=== PATIENT | male | born 1950 | race Caucasian/White ===

== ENCOUNTER 2021-02-10 10:20 | Outpatient (REF) | payer MEDICARE, SELFPAY ==
--- NOTE | 2021-02-10 12:54 | MHC.AU.P13 ---
Adult Audiological Evaluation Date of Visit: 02/10/21 Reason for Appointment: Audiological evaluation to monitor the status of Mr. Landaverde's hearing loss. He has a know bilateral, asymmetrical sensorineural hearing loss, right ear worse than left. He uses hearing aids binaurally, but states that he has not been using them much lately. He feels his hearing is gradually worsening. He denies any changes to his medical history. Previous Hearing Test Results: [facility] [place]- Normal sloping to a moderately severe SNHL in the left ear, Mild to moderately severe SNHL in the right ear. Medical History: Medical History: BPPV Hearing Instrument History- Right Ear: Applications Programmer Analyst: Colibria Model: Airgain0-M WellAppsE Serial Number: [id number] Battery Size: 312 Repair Warranty: 10/24/2018 Loss and Damage Warranty: 10/24/2018 Dispensed By: [facility] Date of Fittin07/29/2016 Hearing Instrument History- Left Ear: Applications Programmer Analyst: Colibria Model: Airgain0-M WellAppsE Serial Number: [id number] Battery Size: 312 Warranty: 10/24/2018 Loss and Damage Warranty: 10/24/2018 Dispensed By: [facility] Date of Fittin07/29/2016 Otoscopy: Right Ear: Unremarkable Left Ear: Completely occluded with cerumen Tympanometry: Tympanometry performed due to: To determine if cerumen blockage is fully occluding canal(s) Right Ear: Normal Middle Ear System (Type A) Left Ear: Normal Middle Ear System (Type A) Hearing Evaluation: Transducer(s) Used: Circumaural Headphones, Bone Conduction Method: Conventional Audiometry Stimuli Used: Pure Tones Right Ear: Description of Hearing: Mild sloping to severe sensorineural hearing loss from 250-8000 Hz. Left Ear: Description of Hearing: Normal hearing from 250-1000 Hz, sloping to a mild to severe sensorineural hearing loss from 6803-6819 Hz. Speech Recognition Threshold (SRT): Method Used: Recorded Lists Stimuli Used: Spondee Words Right Ear: 40 dBHL Left Ear: 20 dBHL Word Discrimination: Method: Recorded Lists Word Lists Used: NU-6 Right Ear: 88% at 80 dBHL Left Ear: 100% at 60 dBHL Comparison: Compared to the most recent evaluation: Hearing is stable. Recommendations: Audiological re-evaluation in one year. Hearing aid maintenance performed today. Recommend wax removal from the left ear, either with the use of wax removal drops or by a physician. Diagnosis: Primary Diagnosis: H90.3 Bilateral Sensorineural Hearing Loss Secondary Diagnosis: H61.22 Impacted Cerumen, Left Ear Services Performed: Comprehensive Audiological Evaluation (CPT 99341) Tympanometry (CPT 89920) Signature: Provider: Tiffany Agosto, CCC-A
== END 2021-02-10 10:21 | disposition home or self-care (01) ==
LOC: HO.SH 10:20
PROVIDERS: Visit Provider Internal Medicine
DX: H90.3 Sensorineural hearing loss, bilateral (principal); H61.22 Impacted cerumen, left ear
CPT/HCPCS: 92557; 92567

== ENCOUNTER 2021-03-04 07:51 | Outpatient (REF) | payer MEDICARE, OTHER, SELFPAY ==
[2021-03-04 09:26] LABS: Prostate Specific Antigen 9.32 ng/mL (<0.05-4.0)
== END 2021-03-04 07:52 | disposition home or self-care (01) ==
LOC: HO.LAB 07:51
PROVIDERS: PCP Internal Medicine; Visit Provider Urology
DX: Z12.5 Encounter for screening for malignant neoplasm of prostate (principal); N40.1 Benign prostatic hyperplasia with lower urinary tract symptoms
CPT/HCPCS: 36415; 84153

== ENCOUNTER 2022-04-28 12:51 | Outpatient (REF) | payer MEDICARE, OTHER, SELFPAY ==
--- NOTE | 2022-04-28 16:12 | MHC.AU.AHA ---
Adult Audiological Evaluation Date of Visit: 04/28/22 Reason for Appointment: Audiological evaluation to determine if there has been a change in hearing. Mr. Landaverde has a known asymmetrical sensorineural hearing loss, worse in his right ear. He has previously used hearing aids binaurally, though he notes he has lost his right hearing aid. He feels that the hearing in his right ear is getting worse. Previous Hearing Test Results: [facility] [place], 02/10/2021- Mild to severe sensorineural hearing loss in the right ear, normal hearing through 1000 Hz sloping to a mild to severe sensorineural hearing loss through 8000 Hz. Cerumen occlusion in the left ear. Medical History: Medical History: Diabetes Medical History: BPPV, high cholesterol Allergies: NKA Medication List: Plavix, medications for diabetes and cholesterol, unsure of the names and didn't have list with him. Hearing Instrument History- Right Ear- LOST Steam And Gas Turbines Assembler: [employer] Model: XenoOne0-M Allocadia Serial Number: [id number] Battery Size: 312 Repair Warranty: 10/24/2018 Loss and Damage Warranty: 10/24/2018 Dispensed By: [facility] Date of Fittin07/29/2016 Hearing Instrument History- Left Ear: Steam And Gas Turbines Assembler: [employer] Model: XenoOne0-M Rover AppsE Serial Number: [id number] Battery Size: 312 Warranty: 10/24/2018 Loss and Damage Warranty: 10/24/2018 Dispensed By: [facility] Date of Fittin07/29/2016 Otoscopy: Right Ear: Completely occluded with cerumen Left Ear: Completely occluded with cerumen Tympanometry: Right Ear: Could Not Obtain Seal Left Ear: Could Not Obtain Seal Hearing Evaluation: Transducer(s) Used: Circumaural Headphones, Bone Conduction Method: Conventional Audiometry Stimuli Used: Pure Tones Right Ear: Description of Hearing: Mild sloping to severe sensorineural hearing loss from 250-8000 Hz. Left Ear: Description of Hearing: Normal hearing from 250-750 Hz, sloping to a mild to severe sensorineural hearing loss from 7197-9908 Hz. Speech Recognition Threshold (SRT): Method Used: Monitored Live Voice Stimuli Used: Spondee Words Right Ear: 45 dBHL Left Ear: 20 dBHL Word Discrimination: Method: Recorded Lists Word Lists Used: NU-6 Right Ear: 84% at 85 dBHL Left Ear: 76% at 60 dBHL Comparison: Compared to the most recent evaluation: Hearing is stable. Recommendations: Audiological re-evaluation in one year. Follow-up with physician for cerumen removal and recommend use of cerumen removal/softening drops (i.e. EarWax MD, Debrtherese). Patient would like to have his left hearing aid reprogrammed from his right ear since he has lost the right aid. However, he forgot the left aid today and may have misplaced it. He will look for the left aid and return to have to reprogrammed at his convenience. Diagnosis: Primary Diagnosis: H90.3 Bilateral Sensorineural Hearing Loss Secondary Diagnosis: H61.23 Impacted Cerumen, Bilateral Services Performed: Comprehensive Audiological Evaluation (CPT 91078) Signature: Provider: Tiffany Agosto, CCC-A
== END 2022-04-28 12:52 | disposition home or self-care (01) ==
LOC: HO.SH 12:51
PROVIDERS: Visit Provider Internal Medicine
DX: Z01.118 Encounter for examination of ears and hearing with other abnormal findings (principal); H90.3 Sensorineural hearing loss, bilateral; H61.23 Impacted cerumen, bilateral
CPT/HCPCS: 92557

== ENCOUNTER 2022-05-01 13:31 | Outpatient (REF) | payer SELFPAY | END 2022-05-01 13:32 | disposition home or self-care (01) | LOC: HO.HAP 13:31 | PROVIDERS: Visit Provider Internal Medicine | DX: Z46.1 Encounter for fitting and adjustment of hearing aid (principal); H90.3 Sensorineural hearing loss, bilateral | CPT/HCPCS: 99499 ==

== ENCOUNTER 2022-08-19 07:53 | Outpatient (REF) | payer MEDICARE, OTHER, SELFPAY ==
[2022-08-19 08:05] LABS: MANUAL DIFF FLAG NO
[2022-08-19 09:08] LABS: Basophils Absolute Auto 0.1 X10*3/uL (0.0-0.2); Eosinophils Absolute Auto 0.5 X10*3/uL (0.0-0.4); Eosinophils Percent Auto 6.7 % (0-4); Hematocrit 40.2 % (42.0-52.0); Hemoglobin 13.1 g/dl (14.0-18.0); Imm Gran Abs Auto 0.03 X10*3/uL (0.00-0.03); Imm Gran Pct Auto 0.4 % (0.0-0.4); Lymphocytes Absolute Auto 2.5 X10*3/uL (1.2-4.9); Lymphocytes Percent Auto 30.4 % (20-40); Mean Corpuscular HGB Conc 32.6 g/dl (31.0-36.0); Mean Corpuscular Hemoglobin 28.2 pg (27.0-33.0); Mean Corpuscular Volume 86.5 fL (80.0-98.0); Mean Platelet Volume 10.2 fL (9.4-12.4); Monocytes Absolute Auto 0.8 X10*3/uL (0.1-1.2); Monocytes Percent Auto 9.7 % (2-11); Neutrophils Absolute Auto 4.2 x10*3/uL (2.0-8.3); Neutrophils Percent Auto 51.8 % (45-73); Platelet Count 196 X10*3/uL (160-400); Red Blood Count 4.65 X10*6/uL (4.60-5.80); Red Cell Distribution Width 13.3 % (11.0-16.0); White Blood Count 8.1 X10*3/uL (4.8-10.8)
[2022-08-19 09:39] LABS: Anion Gap 16 (12-20); Blood Urea Nitrogen 14 mg/dL (9-16); Calcium 9.7 mg/dL (8.4-10.2); Carbon Dioxide 27 mmol/L (22-29); Chloride 102 mmol/L (96-108); Estimated Glomerular Filt Rate > 60; Glucose Random 151 mg/dL (60-115); Potassium 4.3 mmol/L (3.3-5.1); Sodium 141 mmol/L (135-145)
[2022-08-19 10:08] LABS: Prostate Specific Antigen 8.81 ng/mL (<0.05-4.0)
== END 2022-08-19 07:54 | disposition home or self-care (01) ==
LOC: HO.LAB 07:53
PROVIDERS: PCP Internal Medicine; Visit Provider Urology
DX: Z12.5 Encounter for screening for malignant neoplasm of prostate (principal); R97.20 Elevated prostate specific antigen [PSA]; N40.1 Benign prostatic hyperplasia with lower urinary tract symptoms
CPT/HCPCS: 36415; 80048; 84153; 85025

== ENCOUNTER 2023-07-09 08:07 | Outpatient (REF) | payer MEDICARE, OTHER, SELFPAY ==
[2023-07-09 09:45] LABS: Prostate Specific Antigen 7.01 ng/mL (<0.05-4.0)
== END 2023-07-09 08:08 | disposition home or self-care (01) ==
LOC: HO.LAB 08:07
PROVIDERS: PCP Internal Medicine; Visit Provider Urology
DX: C61 Malignant neoplasm of prostate (principal); Z12.5 Encounter for screening for malignant neoplasm of prostate
CPT/HCPCS: 36415; 84153

== ENCOUNTER 2024-07-04 12:35 | Outpatient (REF) | payer SELFPAY | END 2024-07-04 12:36 | disposition home or self-care (01) | LOC: HO.HAP 12:35 | PROVIDERS: Visit Provider Internal Medicine | DX: Z13.89 Encounter for screening for other disorder (principal) ==

== ENCOUNTER 2024-07-06 12:40 | Outpatient (REF) | payer SELFPAY | END 2024-07-06 12:41 | disposition home or self-care (01) | LOC: HO.HAP 12:40 | PROVIDERS: Visit Provider Internal Medicine | DX: Z46.1 Encounter for fitting and adjustment of hearing aid (principal) | CPT/HCPCS: 92593 ==

== ENCOUNTER 2024-11-23 13:41 | Outpatient (REF) | payer MEDICARE, SELFPAY ==
--- NOTE | 2024-11-23 14:31 | MHC.AU.HA3 ---
Hearing Instrument Follow-Up- Binaural Date of Visit: 11/23/24 Right Ear: Ramírez, Model, Color, Serial Number: [id number] SN: [id number] - LOST Senior Procurement Manager Repair Warranty: 10/24/2018 Senior Procurement Manager Loss and Damage Warranty: 10/24/2018 Battery Size: 312 Certification And Selection Specialist/Slim Tube: 2 slim tube Earmold/Dome/CShell/SlimTip: Small vented dome Dispensed By: [facility] Date of Fittin07/29/2016 Left Ear: Ramírez, Model, Color, Serial Number: [id number] - Reprogrammed for right ear 05/01/2022 Senior Procurement Manager Repair Warranty: 10/24/2018 Senior Procurement Manager Loss and Damage Warranty: 10/24/2018 Battery Size: 312 Certification And Selection Specialist/Slim Tube: 2 slim tube Earmold/Dome/CShell/SlimTip: Small vented dome Dispensed By: [facility] Date of Fittin07/29/2016 Follow-Up Summary: Updated hearing test - see audio. Lost original right VALLADARES in April 2022, left VALLADARES reprogrammed for right ear at that time. Declined VALLADARES services today (cleaning, tubing change, reprogramming) - Did not want to self pay. Has [employer] Medicare Preferred insurance; he is considering new HAs and will inquire about a VALLADARES benefit through his insurance. Recommendations: Hearing instrument follow-up or maintenance as needed. Please contact our clinic with any questions or concerns. Diagnosis Code(s): Primary Diagnosis: H90.3 Bilateral Sensorineural Hearing Loss Signature: Provider: Karine Cody, [facility]
== END 2024-11-23 13:42 | disposition home or self-care (01) ==
LOC: HO.SH 13:41
PROVIDERS: Visit Provider Internal Medicine
DX: Z01.118 Encounter for examination of ears and hearing with other abnormal findings (principal); H90.3 Sensorineural hearing loss, bilateral
CPT/HCPCS: 92557

== ENCOUNTER 2025-01-01 15:34 | Outpatient (REF) | payer MEDICARE, SELFPAY ==
--- OUTSIDE RECORDS SUMMARY | 2025-01-01 17:01 | XMS_ITS | Encounter Summary ---
Author Organization [employer] Address [address] [facility] [address] [place] [address] Care Team Providers Care Records Management Assistant Name Role Phone Stacey Hoffman OD Primary Care Provider [phone] Encounter Details Date Type Department Care Team (Latest Contact Info) Description 01/24/2019 Abstract [facility] CONVERSIONS Dental, Provider, DDS Social History Tobacco Use Types Packs/Day Years Used Date Smoking Tobacco: Never Assessed Sex and Gender Information Value Date Recorded Sex Assigned at Male 09/28/2022 10:17 AM EDT Legal Sex Male 10:17 AM EDT Gender Identity Male 09/28/2022 10:17 AM EDT Sexual Orientation Straight 09/28/2022 10 :17 AM EDT documented as of this encounter Plan of Treatment Not on file documented as of this encounter Visit Diagnoses Not on filedocumented in this encounter Care Teams Records Management Assistant Relationship Specialty Start Date End Date Stacey Hoffman OD [address] [place] [id number] PCP - General Optometry 09/14/17 12/05/23 documented as of this encounter
--- OUTSIDE RECORDS SUMMARY | 2025-01-01 17:01 | XMS_ITS | Clinical Summary ---
Author Organization [employer] Address [address] [facility] [address] [place] [address] Care Team Providers Care Food Service Employee Name Role Phone Unavailable Primary Care Provider Unavailabl e Allergies No known active allergies Medications atorvastatin (Lipitor) 10 MG tablet Take 10 mg by mouth in the morning. 3 Active tamsulosin (Flomax) 0.4 MG 24 hr capsule Take 0.4 mg by mouth in the morning. 3 Active sertraline (Zoloft) 50 MG tablet TAKE 1 & 1/2 TABLETS BY MOUTH EVERYDAY 3 Active traZODone (Desyrel) 50 MG tablet Take 50 mg by mouth at bedtime. 3 Active azelastine (Astelin) 0.1 % nasal spray spray 2 spray by intranasal route 2 times every day in each nostril Active Fluticasone-Ume clidin-Vilant (Trelegy Ellipta) 100-62.5-25 MCG/ACT aerosol powder Inhale 1 puff at bed time. Active amLODIPine (Norvasc) 5 MG tablet Take 5 mg by mouth in the morning. 3 Active buPROPion SR (Wellbutrin SR) 150 MG 12 hr tablet Take 150 mg by mouth 2 times daily. 3 Active D3-1000 25 MCG (1000 UT) capsule Take 25 mcg by mouth in the morning. 3 Active Social History Tobacco Use Types Packs/Day Years Used Date Smoking Tobacco: Former Cigarettes Smokeless Tobacco: Never Tobacco Cessation:Counseling Given: Not Answered Sex and Gender Information Value Date Recorded Sex Assigned at Male 09/28/2022 10:17 AM EDT Legal Sex Male 10:17 AM EDT Gender Identity Male 09/28/2022 10:17 AM EDT Sexual Orientation Straight 09/28/2022 10 :17 AM EDT Last Filed Vital Signs Vital Sign Reading Time Taken Comments Blood Pressure 70/69 08/05/2023 4:02 PM EDT Pulse 78 08/05/2023 4:02 PM EDT Temperature - - Respiratory Rate - - Oxygen Saturation - - Inhaled Oxygen Concentration - - Weight - - Height - - Body Mass Index - - Plan of Treatment Health Maintenance Due Date Last Done Comments CT Colonography 1952 Colonoscopy 1952 Colorectal Cancer Screening 1952 Depression Screening 1952 FIT DNA/Cologuard 1952 FIT 1952 FOBT 1952 Lipid Panel 1952 SDOH Screening 1952 Sigmoidoscopy 1952 Alcohol/Substance Use Screening 1964 Hepatitis B Vaccines (1 of 3 - Risk 3-dose series) 2012 RSV Patients and Patients Aged 60 years or older (1 - Risk 60-74 years 1-dose series) 2012 Dental X-Ray: Full Mouth 06/23/2020 06/22/2017 Dental X-Ray: Bitewings 02/24/2023 02/24/20 22, 07/25/2019, 07/19/2018, Additional history exists Hepatitis A Vaccines (2 of 2 - Risk 2-dose series) 10/25/2023 04/24/2023 Dental Oral Exam 02/04/2024 08/05/2023, , 01/19/2020, Additional history exists Dental Prophylaxis 02/04/2024 08/05/2023, 0 02/23/2022, 01/19/2020, Additional history exists COVID-19 Vaccine ( season) 2024 09/05/2022, 03/13/2022, 10/13/2021, Additional history exists Influenza Vaccine (#1) 2024 , 08/15/2022, 08/15/2022, Additional history exists Tobacco Screening 08/05/2024 08/05/2023 DTaP/Tdap/Td Vaccines (2 - Td or Tdap) 04/24/2033 04/24/2023 Pneumococcal Vaccine: 50+ Years Completed 08/11/2018, 08/07/2017 Zoster Vaccines Completed 12/17/2020, 12/31, 11/04/2014 HIB Vaccines Aged Out No longer eligi ble based on patient's age to complete this topic HPV Vaccines Aged Out No longer eligi ble based on patient's age to complete this topic IPV Vaccines Aged Out No longer eligi ble based on patient's age to complete this topic Meningococcal Vaccine Aged Out No jose alyson eligible based on patient's age to complete this topic RSV under 20 months Aged Out No longe r eligible based on patient's age to complete this topic Rotavirus Vaccines Aged Out No longer eligible based on patient's age to complete this topic Procedures Procedure Name Priority Date/Time Associated Diagnosis Comments PROPHYLAXIS - ADULT Routine 08/05/2023 4 :00 PM EDT Encounter for dental examination PERIODIC ORAL EVALUATION - ESTABLISHED PATIENT Routine 08/05/2023 4:00 PM EDT BITEWINGS - 4 RADIOGRAPHIC IMAGES Routine 02/23/2022 12:00 AM EDT DIAGNOSTIC - DIAGNOSTIC IMAGING - INTRAORAL - COMPREHENSIVE SERIES OF RADIOGRAPHIC IMAGES Routine 06/22/2017 12:00 AM EDT from Last 3 Months or Most Recently Relevant to Health Maintenance Insurance DENTAL - HSN PARTIAL (MEDICAID)
--- OUTSIDE RECORDS SUMMARY | 2025-01-01 17:01 | XMS_ITS | Encounter Summary ---
Author Organization [employer] Address [address] [facility] 7t [place] [address] Care Team Providers Care Reading Recovery Teacher Name Role Phone Stacey Hoffman OD Primary Care Provider [phone] Encounter Details Date Type Department Care Team (Latest Contact Info) Description 02/23/2022 Abstract [facility] CONVERSIONS Dental, Provider, DDS Social History Tobacco [...] on filedocumented in this encounter Care Teams Reading Recovery Teacher Relationship Specialty Start Date End Date Stacey oHffman OD [address] [place] [id number] PCP - General Optometry 09/14/17 12/05/23 documented as of this encounter
--- OUTSIDE RECORDS SUMMARY | 2025-01-01 17:01 | XMS_ITS | Encounter Summary ---
Author Organization [employer] Address [address] [facility] 7t [place] [address] Care Team Providers Care Wood Polisher Name Role Phone Stacey Hoffman OD Primary Care Provider [phone] Encounter Details Date Type Department Care Team (Latest Contact Info) Description 01/19/2020 Abstract [facility] CONVERSIONS Dental, Provider, DDS Social History Tobacco [...] on filedocumented in this encounter Care Teams Wood Polisher Relationship Specialty Start Date End Date Stacey Hoffman OD [address] [place] [phone] PCP - General Optometry 09/14/17 12/05/23 documented as of this encounter
[2025-01-01 17:37] LABS: MANUAL DIFF FLAG NO
[2025-01-01 17:59] LABS: Basophils Absolute Auto 0.1 X10*3/uL (0.0-0.2); Basophils Percent Auto 0.8 % (0-2); Eosinophils Absolute Auto 0.3 X10*3/uL (0.0-0.4); Eosinophils Percent Auto 3.3 % (0-4); Hematocrit 37.4 % (42.0-52.0); Hemoglobin 11.8 g/dl (14.0-18.0); Imm Gran Abs Auto 0.07 X10*3/uL (0.00-0.03); Imm Gran Pct Auto 0.7 % (0.0-0.4); Lymphocytes Absolute Auto 2.6 X10*3/uL (1.2-4.9); Lymphocytes Percent Auto 25.3 % (20-40); Mean Corpuscular HGB Conc 31.6 g/dl (31.0-36.0); Mean Corpuscular Hemoglobin 27.4 pg (27.0-33.0); Mean Platelet Volume 9.9 fL (9.4-12.4); Monocytes Absolute Auto 0.9 X10*3/uL (0.1-1.2); Monocytes Percent Auto 9.1 % (2-11); Neutrophils Absolute Auto 6.3 x10*3/uL (2.0-8.3); Neutrophils Percent Auto 60.8 % (45-73); Platelet Count 422 X10*3/uL (160-400); Red Cell Distribution Width 13.8 % (11.0-16.0); White Blood Count 10.4 X10*3/uL (4.8-10.8)
[2025-01-01 18:15] LABS: Alanine Aminotransferase 26 U/L (0-40); Albumin Level 4.1 g/dL (3.5-5.0); Alkaline Phosphatase 72 U/L (39-117); Anion Gap 13 (12-20); Aspartate Amino Transferase 18 U/L (5-37); Bilirubin Total 0.2 mg/dL (0.0-1.0); Blood Urea Nitrogen 12 mg/dL (9-16); Calcium 9.5 mg/dL (8.4-10.2); Carbon Dioxide 26 mmol/L (22-29); Chloride 103 mmol/L (96-108); Estimated Glomerular Filt Rate > 60; Glucose Random 83 mg/dL (60-115); Iron 39 mcg/dL (45-160); Magnesium 1.9 mg/dL (1.6-2.6); Percent Iron Saturation 15 % (15-50); Potassium 3.7 mmol/L (3.3-5.1); Sodium 138 mmol/L (135-145); Total Iron Binding Capacity 262 mcg/dL (228-428); Total Protein 8.8 g/dL (6.5-8.0); Unsaturated Iron Binding 223 ug/dL
[2025-01-01 18:30] LABS: Parathyroid Hormone Intact 48.7 pg/mL (8.7-77.1)
[2025-01-01 18:31] LABS: Ferritin 96 ng/mL (20-250); TSH reflex Free T4 2.93 uIU/mL (0.32-4.0)
[2025-01-01 18:40] LABS: Vitamin B12 926 pg/mL (200-900)
[2025-01-02 13:54] LABS: Calcium, Ionized 5.3 mg/dL (4.7-5.5)
== END 2025-01-01 15:35 | disposition home or self-care (01) ==
LOC: HO.WFDLDS 15:34
PROVIDERS: Visit Provider Internal Medicine
DX: Z13.89 Encounter for screening for other disorder (principal)
CPT/HCPCS: 36415; 80053; 82330; 82607; 82728; 83540; 83735; 83970; 84443; 85025

== ENCOUNTER 2025-01-11 11:45 | Outpatient (REF) | payer MEDICARE, SELFPAY ==
--- OUTSIDE RECORDS SUMMARY | 2025-01-11 12:13 | XMS_ITS | Encounter Summary ---
Author Organization [employer] Address [address] [facility] [address]t [place] [address] Care Team Providers Care Finishing Lab Technician Name Role Phone Stacey Hoffman OD Primary Care Provider [phone] Encounter Details Date Type Department Care Team (Latest Contact Info) Description 01/24/2019 Abstract [facility] CONVERSIONS Dental, Provider, DDS Social History [...] on filedocumented in this encounter Care Teams Finishing Lab Technician Relationship Specialty Start Date End Date Stacey Hoffman OD [address] [place] [id number] PCP - General Optometry 09/14/17 12/05/23 documented as of this encounter
--- OUTSIDE RECORDS SUMMARY | 2025-01-11 12:13 | XMS_ITS | Encounter Summary ---
Author Organization [employer] Address [address] [facility] 7t [place] [address] Care Team Providers Care Auto Vinyl Top Installer Name Role Phone Stacey Hoffman OD Primary Care Provider [phone] Encounter Details Date Type Department Care Team [...] on filedocumented in this encounter Care Teams Auto Vinyl Top Installer Relationship Specialty Start Date End Date Stacey Hoffman OD [address] [place] [id number] PCP - General Optometry 09/14/17 12/05/23 documented as of this encounter
--- OUTSIDE RECORDS SUMMARY | 2025-01-11 12:13 | XMS_ITS | Clinical Summary ---
Author Organization [employer] Address [address] [facility] 7t [place] [address] Care Team Providers Care Machine Grainer Name Role Phone Unavailable Primary Care Provider [...] RADIOGRAPHIC IMAGES Routine 02/23/2022 12:00 AM EDT INTRAORAL - COMPLETE SERIES OF RADIOGRAPHIC IMAGES Routine 06/22/2017 12:00 AM EDT from Last 3 Months or Most Recently Relevant to Health Maintenance Insurance DENTAL - HSN PARTIAL (MEDICAID)
--- OUTSIDE RECORDS SUMMARY | 2025-01-11 12:13 | XMS_ITS | Encounter Summary ---
Author Organization [employer] Address [address] [facility] [address] [place] [address] Care Team Providers Care Seeing Eye Dog Trainer Name Role Phone Stacey Hoffman OD Primary Care Provider [phone] Encounter Details Date Type Department Care Team [...] on filedocumented in this encounter Care Teams Seeing Eye Dog Trainer Relationship Specialty Start Date End Date Stacey Hoffman OD [address] [place] [phone] PCP - General Optometry 09/14/17 12/05/23 documented as of this encounter
[2025-01-11 14:29] LABS: Anion Gap 12 (12-20); Blood Urea Nitrogen 13 mg/dL (9-16); Calcium 9.7 mg/dL (8.4-10.2); Carbon Dioxide 27 mmol/L (22-29); Chloride 104 mmol/L (96-108); Estimated Glomerular Filt Rate > 60; Glucose Random 248 mg/dL (60-115); Sodium 139 mmol/L (135-145)
== END 2025-01-11 11:46 | disposition home or self-care (01) ==
LOC: HO.WFDLDS 11:45
PROVIDERS: Visit Provider Physician Assistant
DX: R31.0 Gross hematuria (principal)
CPT/HCPCS: 36415; 80048

== ENCOUNTER 2025-02-20 13:05 | Outpatient (REF) | payer MEDICARE, SELFPAY ==
[2025-02-20 15:30] LABS: Prostate Specific Antigen 7.98 ng/mL (<0.05-4.0)
== END 2025-02-20 13:06 | disposition home or self-care (01) ==
LOC: HO.WFDLDS 13:05
PROVIDERS: Visit Provider Urology
DX: C61 Malignant neoplasm of prostate (principal); Z12.5 Encounter for screening for malignant neoplasm of prostate
CPT/HCPCS: 36415; 84153

== ENCOUNTER 2025-07-20 09:21 | Outpatient (REF) | payer MEDICARE, SELFPAY ==
--- OUTSIDE RECORDS SUMMARY | 2025-07-20 09:27 | XMS_ITS | Encounter Summary ---
Author Organization [facility] [place] [address] Care Team Providers Care Supervisor Bleach Plant Name Role Phone Lubna Drake MD Primary Care Provider [phone] Encounter Details Date Type Department Care Team (Late st Contact Info) Description 03/27/2025 Lab Requisition [facility] - Main Lab [address] [facility] [place] [phone] Toño Mercer PA [address] [place] [address] Gross hematuria Social History Tobacco Use Types Packs/Day Years Used Date Smoking Tobacco: Former Cigarettes 0.5 55.5 S tarted: 1970 Smokeless Tobacco: Never Alcohol Use Standard Drinks/Week Comments No 0 (1 standard drink = 0.6 oz pur e alcohol) Sex and Gender Information Value Date Recorded Sex Assigned at Not on file Legal Sex Male 2:45 AM EST Gender Identity Not on file Sexual Orientation Not on file documented as of this encounter Plan of Treatment Not on file documented as of this encounter Procedures Procedure Name Priority Date/Time Associated Diagnosis Comments BACTERIAL IDENTIFICATION AND SUSCEPTIBILITY, AEROBIC Routine 03/26/2025 12:00 AM EDT Gross hematuria documented in this encounter Results * Bacterial identification and susceptibility, aerobic (03/26/2025 12:00 AM EDT) Culture, Bacterial ID and Sensitivity Mixed urogenital jarett, no uropathogens present. Suggest repeat specimen, if clinically indicated. 03/28/2025 8:51 AM EDT [facility] Other Urine specimen from urethra / Unknown 03/26/2025 03/27/2025 1:59 PM EDT us [facility] MICROBIOLOGY - GENERAL ORDER HIEU Final Result [facility] [address] [place] [address], [place] [phone] documented in this encounter Visit Diagnoses Diagnosis Gross hematuria documented in this encounter Care Teams Supervisor Bleach Plant Relationship Specialty Start Date End Date Lubna Drake MD [address] [place] [phone] PCP - General Internal Medicine 02/26/25 documented as of this encounter
--- OUTSIDE RECORDS SUMMARY | 2025-07-20 09:27 | XMS_ITS | Clinical Summary ---
Author Organization [employer] Address [address] [facility] 7t [place] [address] Care Team Providers Care Benchroom Shop Optician Name Role Phone Unavailable Primary Care Provider [...] by mouth in the morning. 3 Active Vibegron (GEMTESA PO) Take by mouth. Ac tive metFORMIN, OSM, (Fortamet) 500 MG 24 hr tablet Take 500 mg by mouth with evening meal. Do not crush, chew, or split. Active Social History Tobacco Use Types Packs/Day [...] Sign Reading Time Taken Comments Blood Pressure 124/76 02/15/2025 2:12 PM EDT Pulse 83 02/15/2025 2:12 PM EDT Temperature - - Respiratory Rate - - Oxygen Saturation - - Inhaled Oxygen Concentration - - Weight - - Height - - Body Mass Index - - Plan of Treatment Upcoming Encounters Date Type Department Care Team (Late st Contact Info) Description 08/20/2025 2:00 PM EDT Office Visit [facility] [address] [place] [address] [phone] Sonia Perez [address] [place], [place] [phone] Health Maintenance Due Date Last Done Comments CT Colonography 1952 Colonoscopy 1952 Colorectal Cancer Screening 1952 Depression Screening 1952 FIT DNA/Cologuard 1952 FIT 1952 FOBT 1952 Lipid Panel 1952 SDOH Screening 1952 Sigmoidoscopy 1952 Alcohol/Substance Use Screening 1964 Hepatitis B Vaccines (1 of 3 - Risk 3-dose series) 2012 Dental X-Ray: Full Mouth 06/23/2020 06/22/2017 COVID-19 Vaccine ( season) 2024 09/05/2022, 03/13/2022, 10/13/2021, Additional history exists Influenza Vaccine (#1) 2025 , 08/12/2023, 08/12/2023, Additional history exists Dental Oral Exam 08/19/2025 02/15/2025, 05/2023, 02/23/2022, Additional history exists Dental Prophylaxis 08/19/2025 02/15/2025, 0 08/05/2023, 02/23/2022, Additional history exists Tobacco Screening 02/15/2026 02/15/2025 Dental X-Ray: Bitewings 02/16/2026 02/16/20, 02/23/2022, 07/25/2019, Additional history exists DTaP/Tdap/Td Vaccines (2 - Td or Tdap) 04/24/2033 04/24/2023 Pneumococcal Vaccine: 50+ Years Completed 08/11/2018, 08/07/2017 Zoster Vaccines Completed 12/17/2020, 12/31, 11/04/2014 RSV Patients and Patients Aged 60 years or older Completed 08/12/2023 Hepatitis A Vaccines Completed 11/06/2023, 04/24/20 23 HIB Vaccines Aged Out No longer eligi ble based on patient's age to complete this topic HPV Vaccines Aged Out No longer eligi ble based on patient's age to complete this topic IPV Vaccines Aged Out No longer eligi ble based on patient's age to complete this topic Meningococcal B Vaccine Aged Out No l onger eligible based on patient's age to complete [...] Associated Diagnosis Comments PROPHYLAXIS - ADULT Routine 02/15/2025 2 :00 PM EDT BITEWINGS - 3 RADIOGRAPHIC IMAGES Routine 02/15/2025 2:00 PM EDT PERIODIC ORAL EVALUATION - ESTABLISHED PATIENT Routine 02/15/2025 2:00 PM EDT INTRAORAL - COMPLETE SERIES OF RADIOGRAPHIC IMAGES Routine 06/22/2017 12:00 AM EDT from Last 3 Months or Most Recently Relevant to Health Maintenance Insurance DENTAL - HSN PARTIAL (MEDICAID)
[2025-07-20 11:41] LABS: Prostate Specific Antigen 4.40 ng/mL (<0.05-4.0)
== END 2025-07-20 09:22 | disposition home or self-care (01) ==
LOC: HO.WFDLDS 09:21
PROVIDERS: Visit Provider Urology
DX: C61 Malignant neoplasm of prostate (principal); Z12.5 Encounter for screening for malignant neoplasm of prostate
CPT/HCPCS: 36415; 84153